=== PATIENT | female | born 1995 | race Caucasian/White ===

== ENCOUNTER 2022-08-06 21:13 | Emergency (ER) | payer MEDICAID ==
[~2022-08-06] VITALS: Ht 152.4 cm; Wt 70.3 kg
[2022-08-06 21:38] VITALS: BP 110/57
[2022-08-06 23:59] LABS: APPEARANCE,URINE CLOUDY (CLEAR); BILIRUBIN,URINE NEGATIVE (NEGATIVE); BLOOD, URINE 2+ (NEGATIVE); COLOR,URINE YELLOW (YELLOW); LEUKOCYTE ESTERASE ,URINE 3+ (NEGATIVE); NITRITE, URINE NEGATIVE (NEGATIVE); UGLUCOSE NEGATIVE (NEGATIVE)
[2022-08-07 00:05] LABS: RBC,URINE 0-5 /HPF (0-5); WBC,URINE TOO MANY TO COUNT /HPF (0-5)
[2022-08-07] MEDS ORDERED: PYR100 PO (00:14)
[2022-08-07] MEDS ORDERED: METR-435 PO (00:14)
[2022-08-07] MEDS ORDERED: NITR100C7 PO (00:14)
[2022-08-07 00:29] VITALS: BP 126/70
== END 2022-08-07 00:28 | disposition home or self-care (01) ==
LOC: MED 21:13
DX: N76.0 Acute vaginitis (principal); B96.89 Other specified bacterial agents as the cause of diseases classified elsewhere; N39.0 Urinary tract infection, site not specified; Z79.899 Other long term (current) drug therapy
CPT/HCPCS: 81001; 81025; 87086; 87210; 87491; 99283

== ENCOUNTER 2022-08-27 19:37 | Emergency (ER) | payer MEDICAID ==
[~2022-08-27] VITALS: Ht 152.4 cm; Wt 70.3 kg
[~2022-08-27 19:37] MED LIST: METR-435 PO; NITR100C7 PO; PYR100 PO
[2022-08-27 20:30] VITALS: BP 136/84
--- NOTE | 2022-08-27 20:44 | NUR ---
JOYCE Aguiar examining patient.
[2022-08-27] MEDS ORDERED: AMOX-999 PO (20:50)
[2022-08-27] MEDS ORDERED: IBUP-2213 PO (20:50)
[2022-08-27 21:02] VITALS: BP 136/84
--- NOTE | 2022-08-27 21:02 | NUR ---
Patient discharged with v/s stable. Written and verbal after care instructions given and explained. Patient alert, oriented and verbalized understanding of instructions. Ambulatory with steady gait. All questions addressed prior to discharge. ID band removed. Patient advised to follow up with PMD. Rx of Amoxicillin and Ibuprofen given. Patient educated on indication of medication including possible reaction and side effects. Opportunity to ask questions provided and answered.
== END 2022-08-27 21:02 | disposition home or self-care (01) ==
LOC: MED 19:37
DX: H66.93 Otitis media, unspecified, bilateral (principal); Z79.899 Other long term (current) drug therapy
CPT/HCPCS: 99283

== ENCOUNTER 2023-09-19 04:13 | Emergency (ER) | payer MEDICAID ==
[~2023-09-19] VITALS: Ht 152.4 cm; Wt 72.6 kg
[~2023-09-19 04:13] MED LIST changes: +AMOX-999 PO; +FAMO-92 PO; +IBUP-2213 PO; +ONDA-188 SL; +PHEN-1877 PO
[2023-09-19 05:23] VITALS: BP 94/79; PULSE 84; RESP 16; TEMP 97.8; O2SAT 97
[2023-09-19] MEDS ORDERED: AMOX1TAB8 PO (05:41)
== END 2023-09-19 05:53 | disposition home or self-care (01) ==
LOC: MED 04:13
DX: H66.91 Otitis media, unspecified, right ear (principal); Z79.899 Other long term (current) drug therapy
CPT/HCPCS: 99283

== ENCOUNTER 2024-07-12 12:30 | Emergency (ER) | payer MEDICAID ==
[~2024-07-12] VITALS: Ht 152.4 cm; Wt 72.6 kg
[~2024-07-12 12:30] MED LIST changes: +AMOX1TAB8 PO
[2024-07-12 13:01] VITALS: BP 97/67; PULSE 92; RESP 20; TEMP 98.6; O2SAT 99
[2024-07-12] MEDS ORDERED: BACI-418 TP (15:03)
[2024-07-12] MEDS ORDERED: IBUP-2213 PO (15:03)
[2024-07-12] MEDS: BACITRACIN OINT 500 UNITS/GM PKT TP ONE (15:13)
== END 2024-07-12 15:16 | disposition home or self-care (01) ==
LOC: MED 12:30
DX: T25.222A Burn of second degree of left foot, initial encounter (principal); T25.221A Burn of second degree of right foot, initial encounter; Z79.899 Other long term (current) drug therapy; X10.2XXA Contact with fats and cooking oils, initial encounter; Y93.89 Activity, other specified; Y92.89 Other specified places as the place of occurrence of the external cause; Y99.8 Other external cause status
CPT/HCPCS: 16020; 99282

== ENCOUNTER 2024-07-29 21:16 | Emergency (ER) | payer MEDICAID ==
[~2024-07-29] VITALS: Ht 165.1 cm; Wt 84.4 kg
[~2024-07-29 21:16] MED LIST changes: +BACI-418 TP
[2024-07-29 21:25] VITALS: BP 99/68; PULSE 130; RESP 19; TEMP 98.6; O2SAT 99
[2024-07-29 21:45] LABS: APPEARANCE,URINE CLOUDY (CLEAR); BILIRUBIN,URINE NEGATIVE (NEGATIVE); BLOOD, URINE 3+ (NEGATIVE); COLOR,URINE AMBER (YELLOW); LEUKOCYTE ESTERASE ,URINE 1+ (NEGATIVE); NITRITE, URINE NEGATIVE (NEGATIVE); PROTEIN,URINE TRACE (NEGATIVE); UGLUCOSE NEGATIVE (NEGATIVE); UROBILINOGEN,URINE 0.2 EU/dL (0.2 - 1)
[2024-07-29 21:48] LABS: RBC,URINE 11-20 (MOD) /HPF (0-5)
[2024-07-29 21:49] LABS: BACTERIA,URINE 10-30 (MOD) /HPF (None Seen); SQUAMOUS EPITHELIAL CELL,UR 4-10 (MOD) /LPF (0-3 (FEW))
[2024-07-29] MEDS: NACL 0.9% 1,000 ML IV ONE ×2 (22:04→23:11)
[2024-07-29 22:13] VITALS: O2SAT 99
[2024-07-29] MEDS: ONDANSETRON 4 MG/2 ML VIAL IVP ONE (22:20)
[2024-07-29] MEDS: KETOROLAC 30 MG/ML VIAL IVP ONE (22:26)
[2024-07-29] MEDS ORDERED: ONDA8TAB87 PO (22:34)
[2024-07-29] MEDS ORDERED: IBUP-2213 PO (22:34)
[2024-07-29] MEDS ORDERED: ONDANSETRON 4 MG/2 ML VIAL IVP ONE (22:40)
[2024-07-29] MEDS: diphenhydrAMINE 50 MG/ML VIAL IVP ONE (23:24)
[2024-07-29] MEDS: METOCLOPRAMIDE 10 MG/2 ML INJ VIAL IVP ONE (23:24)
[2024-07-30 00:42] VITALS: BP 100/55; PULSE 124; RESP 17; TEMP 99.3; O2SAT 100
== END 2024-07-30 00:42 | disposition home or self-care (01) ==
LOC: MED 21:16
DX: R10.13 Epigastric pain (principal); R11.2 Nausea with vomiting, unspecified; R19.7 Diarrhea, unspecified; R30.0 Dysuria; R39.15 Urgency of urination; F17.200 Nicotine dependence, unspecified, uncomplicated; Z90.49 Acquired absence of other specified parts of digestive tract; Z79.899 Other long term (current) drug therapy
CPT/HCPCS: 81001; 81025; 87086; 96361; 96374; 96375; 99285; J1200; J1885; J2405; J2765; J7030

== ENCOUNTER 2024-08-01 09:16 | Emergency (ER) | payer MEDICAID ==
[~2024-08-01] VITALS: Ht 152.4 cm; Wt 72.6 kg
[~2024-08-01 09:16] MED LIST changes: +ONDA8TAB87 PO
[2024-08-01 09:38] VITALS: BP 93/61; PULSE 122; RESP 20; TEMP 97.6; O2SAT 100
[2024-08-01 10:29] LABS: BILIRUBIN,URINE NEGATIVE (NEGATIVE); BLOOD, URINE 2+ (NEGATIVE); COLOR,URINE YELLOW (YELLOW); LEUKOCYTE ESTERASE ,URINE NEGATIVE (NEGATIVE); NITRITE, URINE NEGATIVE (NEGATIVE); PROTEIN,URINE NEGATIVE (NEGATIVE); UGLUCOSE NEGATIVE (NEGATIVE); UROBILINOGEN,URINE 0.2 EU/dL (0.2 - 1)
[2024-08-01] MEDS ORDERED: cefTRIAXone 1,000 MG VIAL ONE (10:31)
[2024-08-01 10:33] LABS: APPEARANCE,URINE CLEAR (CLEAR)
[2024-08-01 10:34] LABS: BACTERIA,URINE OCCASSIONAL /HPF (None Seen); SQUAMOUS EPITHELIAL CELL,UR 0-3 (FEW) /LPF (0-3 (FEW)); WBC,URINE 0-5 /HPF (0-5)
[2024-08-01 10:50] LABS: BASOPHILS % (AUTO) 0.1 % (0.0-2.0); EOSINOPHILS # (AUTO) 0.4 K/uL (0-0.4); EOSINOPHILS % (AUTO) 7.3 % (0.0-4.0); HEMATOCRIT 36.6 % (36-48); HEMOGLOBIN 12.2 g/dL (12.0-16.0); LYMPHOCYTES # (AUTO) 0.4 K/uL (2.5-16.5); LYMPHOCYTES % (AUTO) 7.5 % (20.5-51.1); MEAN CORPUSCULAR HEMOGLOBIN 28 pg (27-31); MEAN CORPUSCULAR HGB CONC 33 g/dL (33-37); MEAN CORPUSCULAR VOLUME 83.1 fL (80-94); MONOCYTES # (AUTO) 0.1 K/uL (0.8-1.0); MONOCYTES % (AUTO) 2.8 % (1.7-9.3); NEUTROPHILS # (AUTO) 4.3 K/uL (1.8-7.7); NEUTROPHILS % (AUTO) 82.3 % (42.2-75.2); PLATELET COUNT (AUTO) 192 K/uL (140-450); RED CELL DISTRIBUTION WIDTH 14.6 % (11.6-13.7); WHITE BLOOD COUNT (AUTO) 5.2 K/uL (4.8-10.8)
[2024-08-01] MEDS: KETOROLAC 30 MG/ML VIAL IVP ONE (10:53)
[2024-08-01] MEDS: ONDANSETRON 4 MG/2 ML VIAL IVP ONE (10:54)
[2024-08-01] MEDS: NACL 0.9% 1,000 ML IV ONE (10:54)
[2024-08-01 11:14] LABS: ANION GAP 14.1 (8-16); CALCIUM 8.3 mg/dL (8.5-10.1); CARBON DIOXIDE 22.5 mmol/L (21-32); CREATININE 0.8 mg/dL (0.6-1.3); POTASSIUM 3.6 mmol/L (3.5-5.1)
[2024-08-01] MEDS: ACETAMINOPHEN 100 ML IV ONE (11:26)
[2024-08-01 12:02] LABS: ALBUMIN 2.8 g/dL (3.4-5.0); BILIRUBIN,DIRECT 0.1 mg/dL (0.0-0.3); TOTAL BILIRUBIN 0.2 mg/dL (0.0-1.0); TOTAL PROTEIN, SERUM 6.7 g/dL (6.4-8.2)
[2024-08-01] MEDS ORDERED: METO-486 PO (12:44)
[2024-08-01] MEDS: diphenhydrAMINE 50 MG/ML VIAL IVP ONE (12:44)
[2024-08-01] MEDS: PROCHLORPERAZINE 10 MG/2 ML VIAL IVP ONE (12:44)
[2024-08-01 14:09] LABS: AMPHETAMINE, URINE NEGATIVE ng/ml (NEG <=1000); BARBITURATE, URINE NEGATIVE ng/ml (NEG <=200); BENZODIAZEPINE, URINE POSITIVE ng/mL (NEG <=200); CANNABINOID, URINE POSITIVE ng/mL (NEG <=50); COCAINE, URINE NEGATIVE ng/mL (NEG <=300); OPIATE, URINE NEGATIVE ng/mL (NEG <=2000); PHENCYCLIDINE SCREEN,URINE NEGATIVE ng/mL (NEG <=25)
[2024-08-01 19:29] VITALS: PULSE 89; RESP 18; O2SAT 98
== END 2024-08-01 12:50 | disposition home or self-care (01) ==
LOC: MED 09:16
DX: R11.2 Nausea with vomiting, unspecified (principal); F12.90 Cannabis use, unspecified, uncomplicated; F41.9 Anxiety disorder, unspecified; N83.201 Unspecified ovarian cyst, right side; Z79.899 Other long term (current) drug therapy
CPT/HCPCS: 36415; 74176; 80048; 80076; 80305; 81001; 81025; 83605; 83690; 85025; 87040; 96365; 96367; 96375; 99285; J0696; J0780; J1200; J1885; J2405